=== PATIENT | female | born 2000 | race Caucasian/White ===

== ENCOUNTER 2019-05-09 22:29 | Emergency (ER) | payer OTHER, SELFPAY ==
[~2019-05-09] VITALS: Ht 162.6 cm; Wt 76.9 kg
[2019-05-10 00:12] VITALS: BP 133/80
== END 2019-05-10 00:23 | disposition home or self-care (01) ==
LOC: M ED 22:29
DX: Z77.29 Contact with and (suspected) exposure to other hazardous substances (principal)

== ENCOUNTER → 2022-12-12 | Outpatient (REF) | payer OTHER | LOC: M SFHCWAGY 17:33 | PROVIDERS: ATTEND Nurse Practitioner Family | DX: Z12.4 Encounter for screening for malignant neoplasm of cervix (principal) ==

== ENCOUNTER → 2023-12-17 | Outpatient (REF) | LOC: M EMP 13:13 | PROVIDERS: ATTEND Family Medicine | DX: Z11.52 Encounter for screening for COVID-19 (principal) ==

== ENCOUNTER → 2024-05-31 | Outpatient (CLI) | payer BC ==
[2024-05-31 17:27] LABS: BASO # 0.1 10^3/uL (0.0-0.2); BASO % 0.7 % (0.0-1.0); EOS # 0.1 10^3/uL (0.0-0.5); EOS % 0.8 % (0.0-3.0); HEMATOCRIT 32.5 % (36.0-47.0); HEMOGLOBIN 9.9 g/dl (12.0-15.5); LYMPH # 1.8 10^3/uL (1.5-5.0); LYMPH % 21.7 % (24.0-44.0); MEAN CORPUSCULAR HEMOGLOBIN 25.4 pg (27.0-33.0); MEAN CORPUSCULAR HGB CONC 30.5 g/dl (32.0-36.5); MEAN CORPUSCULAR VOLUME 83.5 fl (80.0-96.0); MONO # 0.8 10^3/uL (0.0-0.8); MONO % 9.6 % (2.0-8.0); NEUTROPHILS # 5.7 10^3/uL (1.5-8.5); PLATELET COUNT, AUTOMATED 298 10^3/uL (150-450); RED BLOOD COUNT 3.89 10^6/uL (4.00-5.40); WHITE BLOOD COUNT 8.5 10^3/uL (4.0-10.0)
[2024-05-31 18:19] LABS: HCG, SERUM QUANTITATIVE < 2.6 MIU/ML (<4.2)
[2024-05-31 18:27] LABS: ALKALINE PHOSPHATASE 46 U/L (35-104); ALT/SGPT 20 U/L (7.0-40); AST/SGOT 24 U/L (<34); BILIRUBIN,TOTAL 0.2 MG/DL (0.3-1.2); BLOOD UREA NITROGEN 12 MG/DL (9-23); CALCIUM LEVEL 9.6 MG/DL (8.5-10.1); CARBON DIOXIDE LEVEL 27 MMOL/L (20-31); CHLORIDE LEVEL 107 MMOL/L (98-107); CREATININE FOR GFR 0.54 MG/DL (0.55-1.30); GLOMERULAR FILTRATION RATE > 60.0 (>60); GLUCOSE, FASTING 90 MG/DL (60-100); POTASSIUM SERUM 4.1 MMOL/L (3.5-5.1); SODIUM LEVEL 143 MMOL/L (136-145); TOTAL PROTEIN 7.4 G/DL (5.7-8.2)
[2024-05-31 18:29] LABS: THYROID STIMULATING HORMONE 1.478 uIU/ML (0.55-4.78)
== END ==
LOC: M PLALAB 16:41
PROVIDERS: ATTEND Family Medicine
DX: N93.9 Abnormal uterine and vaginal bleeding, unspecified (principal); N94.6 Dysmenorrhea, unspecified; F41.9 Anxiety disorder, unspecified

== ENCOUNTER → 2024-06-14 | Outpatient (CLI) | payer BC ==
[2024-06-14 18:23] LABS: PERCENT SATURATION 3.7 % (13.2-45.0)
[2024-06-14 18:26] LABS: FERRITIN 2.7 NG/ML (7.3-270.7); FOLATE 6.8 NG/ML (>5.4)
== END ==
LOC: M PLALAB 15:50
PROVIDERS: ATTEND Student in an Organized Health Care Education/Training Program
DX: D64.9 Anemia, unspecified (principal)

== ENCOUNTER → 2024-06-15 | Outpatient (CLI) | payer BC | LOC: M WHC 12:40 | PROVIDERS: ATTEND Student in an Organized Health Care Education/Training Program | DX: N93.9 Abnormal uterine and vaginal bleeding, unspecified (principal); N85.8 Other specified noninflammatory disorders of uterus ==

== ENCOUNTER 2024-12-15 14:09 | Outpatient (CLI) | payer OTHER ==
[~2024-12-15] VITALS: Ht 162.6 cm; Wt 75.0 kg
[~2024-12-15 14:09] MED LIST: ALBUTEROL SULFATE 2.5 MG/0.5 ML INH CONCENTRATE NEB SOLN INH PRN; EPINEPHrine INJ 1 MG/ML 1ML AMP IM PRN; diphenhydrAMINE 50 MG/ML VIAL IV PRN
[2024-12-15 14:20] VITALS: BP 129/76; O2SAT 100
[2024-12-15] MEDS ORDERED: ACETAMINOPHEN 650 MG PO ONE (14:30)
[2024-12-15] MEDS: FERRIC CARBOXYMALTOSE 750 MG (VIAL MATE) IN 100ML NS IV ONE (14:34)
[2024-12-15 15:20] VITALS: BP 130/70; O2SAT 100
== END 2024-12-15 15:20 ==
LOC: M INFU 14:09
PROVIDERS: ATTEND Student in an Organized Health Care Education/Training Program
DX: D50.9 Iron deficiency anemia, unspecified (principal)
CPT/HCPCS: 96365; J1439

== ENCOUNTER 2024-12-26 14:30 | Outpatient (CLI) | payer OTHER ==
[~2024-12-26] VITALS: Ht 162.6 cm; Wt 72.7 kg
[~2024-12-26 14:30] MED LIST changes: -EPINEPHrine INJ 1 MG/ML 1ML AMP IM PRN
[2024-12-26] MEDS ORDERED: ACETAMINOPHEN 650 MG PO ONE (15:00)
[2024-12-26] MEDS: FERRIC CARBOXYMALTOSE 750 MG (VIAL MATE) IN 100ML NS IV ONE (15:15)
[2024-12-26 15:23] VITALS: BP 134/74; O2SAT 99
[2024-12-26 15:40] VITALS: BP 118/71; O2SAT 100
== END 2024-12-26 15:40 ==
LOC: M INFU 14:30
PROVIDERS: ATTEND Student in an Organized Health Care Education/Training Program
DX: D50.9 Iron deficiency anemia, unspecified (principal)
CPT/HCPCS: 96365; J1439

== ENCOUNTER → 2024-12-28 | Outpatient (REF) | payer OTHER ==
[2024-12-28 11:06] LABS: CHOLESTEROL LEVEL 127.0 MG/DL (<200); CHOLESTEROL RISK RATIO 2.5 (<5); IRON (FE) 263.0 UG/DL (50-170); LDL CHOLESTEROL 63.9 MG/DL (<100); NON-HDL-C 76.3 MG/DL; PERCENT SATURATION 82.4 % (13.2-45.0); TRIGLYCERIDES LEVEL 62.0 MG/DL (<150)
[2024-12-28 11:19] LABS: ESTIMATED AVERAGE GLUCOSE 100.0 MG/DL (60-110)
== END ==
LOC: M SFHCPLAZ 06:41
PROVIDERS: ATTEND Student in an Organized Health Care Education/Training Program
DX: N93.9 Abnormal uterine and vaginal bleeding, unspecified (principal)

== ENCOUNTER → 2025-04-03 | Outpatient (CLI) | payer OTHER | LOC: M PLAIMG 15:54 | PROVIDERS: ATTEND Student in an Organized Health Care Education/Training Program | DX: R07.89 Other chest pain (principal) ==